=== PATIENT | male | born 1960 | race Asian ===

== ENCOUNTER 2021-09-27 02:36 | Emergency (ER) | payer OTHER ==
[~2021-09-27] VITALS: Ht 182.9 cm; Wt 85.7 kg
[2021-09-27 03:33] LABS: PLATELET COUNT 224 K/uL (142-355)
[2021-09-27 03:41] LABS: POTASSIUM 4.7 mmol/L (3.6-5.2)
[2021-09-27 04:07] VITALS: BP 146/78; TEMP 97.7
[2021-09-27] MEDS ORDERED: NOVOLOG100 UNIT/M SC (16:38)
[2021-09-27] MEDS ORDERED: CARV3.12 PO (16:39)
[2021-09-27] MEDS ORDERED: METF100038 PO (16:40)
[2021-09-27] MEDS ORDERED: REMERON SOLTAB15 MG PO (16:42)
[2021-09-27] MEDS ORDERED: PANTOPRAZOLE SO40 M1 PO (16:43)
[2021-09-27] MEDS ORDERED: PIOG30TA PO (16:45)
[2021-09-27] MEDS ORDERED: ROSUVASTATIN CA40 MG PO (16:46)
[2021-09-27] MEDS ORDERED: TRULICITY1.5 MG/0.5 SC (16:49)
[2021-09-27] MEDS ORDERED: AMLODIPINE BESYLATE PO (16:50)
[2021-09-27] MEDS ORDERED: ASPIRIN 8181 MG PO (16:51)
[2021-09-27] MEDS ORDERED: LANTUS100 UNIT/M SC (16:53)
[2021-09-27] MEDS ORDERED: LINZESS72 MCG PO (16:54)
[2021-09-27] MEDS ORDERED: LISI10TA11 PO (16:55)
== END 2021-09-27 04:07 | disposition still patient (30) ==
LOC: ED 02:36
PROVIDERS: Hospitalist
DX: F32.89 Other specified depressive episodes (principal); Z72.811 Adult antisocial behavior; R46.89 Other symptoms and signs involving appearance and behavior; Z11.52 Encounter for screening for COVID-19; Z04.6 Encounter for general psychiatric examination, requested by authority
CPT/HCPCS: 36415; 80053; 81000; 85027; 87635; 93005; 99283; J1200; J1630; U0003

== ENCOUNTER 2022-04-10 11:21 | Emergency (ER) | payer OTHER ==
[~2022-04-10] VITALS: Ht 188 cm; Wt 82.6 kg
[2022-04-10 11:21] VITALS: BP 189/92; TEMP 98
[~2022-04-10 11:21] MED LIST: AMLODIPINE PO; ASPIRIN 8181 MG PO; CARV3.12 PO; CHOL100034 PO; ESCI10TA PO; INSU300I SC; LANTUS100 UNIT/M SC; LINZESS72 MCG PO; LISI10TA11 PO; METF100038 PO; NOVOLOG100 UNIT/M SC; OXCARBAZEPIN300 MG PO; PANTOPRAZOLE SO40 M1 PO; PIOG30TA PO; REMERON SOLTAB15 MG PO; ROSUVASTATIN CA40 MG PO; TRULICITY1.5 MG/0.5 SC
[2022-04-10] MEDS ORDERED: TYLENOL325 MG PO (14:52)
== END 2022-04-10 13:10 | disposition still patient (30) ==
LOC: ED 11:21
DX: R46.89 Other symptoms and signs involving appearance and behavior (principal); Z11.52 Encounter for screening for COVID-19; Z04.6 Encounter for general psychiatric examination, requested by authority
CPT/HCPCS: 87635; 93005; 99283; U0003

== ENCOUNTER 2022-09-04 22:59 | Emergency (ER) | payer OTHER ==
[~2022-09-04] VITALS: Ht 182.9 cm; Wt 80.3 kg
[~2022-09-04 22:59] MED LIST changes: +ACET-206 PO; +ASPI81TA4 PO; +ATOR20TA2 PO; +INSUINJ20 SC; +LORA0.5T17 PO; +MAGNSUS68 PO; +METF500T PO; +NORVASC 5MG TAB PO; +OLAN10INJ INJ; +OLANZAPINE5 MG PO; +PANTOPRAZOLE 40MG TA PO; +TYLENOL325 MG PO
[2022-09-04 23:00] VITALS: BP 146/75; TEMP 97.8
[2022-09-04 23:15] LABS: PLATELET COUNT 290 K/uL (142-355)
[2022-09-04 23:35] LABS: POTASSIUM 5.3 mmol/L (3.6-5.2)
[2022-09-05] MEDS ORDERED: HALO2CON2 PO (13:49)
[2022-09-05] MEDS ORDERED: HALO5INJ3 IM (14:35)
== END 2022-09-04 23:53 | disposition home or self-care (01) ==
LOC: ED 22:59
PROVIDERS: Family Medicine
DX: F03.911 Unspecified dementia, unspecified severity, with agitation (principal); Z11.52 Encounter for screening for COVID-19; Z04.6 Encounter for general psychiatric examination, requested by authority
CPT/HCPCS: 80053; 81002; 85027; 87635; 93005; 99283; U0003

== ENCOUNTER 2022-09-07 19:40 | Emergency (ER) | payer OTHER ==
[~2022-09-07] VITALS: Ht 190.5 cm; Wt 75.8 kg
[2022-09-07 19:40] VITALS: TEMP 98.1
[~2022-09-07 19:40] MED LIST changes: +HALO2CON2 PO; +HALO5INJ3 IM
[2022-09-07 20:21] LABS: PLATELET COUNT 298 K/uL (142-355)
[2022-09-08 01:19] VITALS: BP 152/68
== END 2022-09-08 01:19 | disposition still patient (30) ==
LOC: ED 19:40
PROVIDERS: Emergency Medicine Emergency Medical Services
DX: E11.65 Type 2 diabetes mellitus with hyperglycemia (principal); Z79.4 Long term (current) use of insulin; Z79.84 Long term (current) use of oral hypoglycemic drugs
CPT/HCPCS: 36600; 80053; 81002; 82805; 82948; 83735; 85027; 93005; 96360; 96374; 96376; 99284; J1815

== ENCOUNTER 2022-10-03 23:00 | Emergency (ER) | payer OTHER ==
[~2022-10-03] VITALS: Ht 190.5 cm; Wt 68.0 kg
[2022-10-03 23:00] VITALS: TEMP 97.8
[~2022-10-03 23:00] MED LIST changes: +ENTERIC COATED325 MG PO; +INSU100P SC; +OLAN10INJ IM
[2022-10-03 23:57] LABS: POTASSIUM 4.5 mmol/L (3.6-5.2)
[2022-10-04] LABS: PLATELET COUNT 302 K/uL (142-355)
[2022-10-04 02:05] VITALS: BP 165/78
[2022-10-04] MEDS ORDERED: NOVOLIN R100 UNIT/2 SC ×2 (11:29→11:31)
[2022-10-04] MEDS ORDERED: ZYPREXA ZYDI5 MG PO (11:35)
[2022-10-04] MEDS ORDERED: PANTOPRAZOLE 40MG TA PO (11:36)
[2022-10-04] MEDS ORDERED: PIOG30TA PO (11:37)
[2022-10-04] MEDS ORDERED: MIRTAZAPINE7.5 MG PO (11:37)
[2022-10-04] MEDS ORDERED: TRULICITY1.5 MG/0.5 SC (11:40)
[2022-10-04] MEDS ORDERED: DIPH50IN INJ (11:51)
[2022-10-04] MEDS ORDERED: CARV3.12 PO (11:52)
== END 2022-10-04 02:05 | disposition still patient (30) ==
LOC: ED 23:00
PROVIDERS: Emergency Medicine
DX: F31.89 Other bipolar disorder (principal); R46.89 Other symptoms and signs involving appearance and behavior; E11.65 Type 2 diabetes mellitus with hyperglycemia; I10 Essential (primary) hypertension; I69.951 Hemiplegia and hemiparesis following unspecified cerebrovascular disease affecting right dominant side; Z11.52 Encounter for screening for COVID-19; Z04.6 Encounter for general psychiatric examination, requested by authority
CPT/HCPCS: 80053; 85027; 87635; 93005; 96365; 96374; 99284; J1815; U0003